=== PATIENT | male | born 1970 | race Caucasian/White ===

== ENCOUNTER 2018-02-22 12:11 | Emergency (ER) | payer SELFPAY ==
[2018-02-22 12:16] VITALS: BP 141/92
[2018-02-22] MEDS ORDERED: DIPH/PERTUSS(ACELL)/TETANUS VAC/PF 0.5 ML SYR (>=10YO) IM ONE (12:37)
[2018-02-22] MEDS ORDERED: OXYCODONE-ACETAMINOPHEN 5-325 MG TABLET PO ONE (12:37)
--- NOTE | 2018-02-22 12:39 | ER Document Report ---
ED Medical Screen (RME) - General Chief Complaint: Fall Stated Complaint: LACERATION ARM AND FACE Time Seen by Provider: 02/22/18 12:37 Mode of Arrival: Ambulatory Information source: Patient Notes: 47-year-old male presents to the emergency room after a fall while trying to navigate a gyrate her. He did hit his head but there was no loss of consciousness. He also fell flat on his back and has a lot of thoracic and lumbar spine tenderness. He has small lacerations to bilateral upper extremities. His last tetanus shot is unknown. This been no nausea, vomiting, abdominal pain. TRAVEL OUTSIDE OF THE [place] IN LAST 30 DAYS: No - Related Data Allergies/Adverse Reactions: ziprasidone [From Geodon] Allergy (Verified 02/22/18 12:15) Past Medical History - Social History Frequency of alcohol use: None Drug Abuse: None - Past Medical History Cardiac Medical History: Reports: Hx Hypercholesterolemia, Hx Hypertension Endocrine Medical History: Reports: Hx Diabetes Mellitus Type 2 - borderline Renal/ Medical History: Denies: Hx Peritoneal Dialysis Psychiatric Medical History: Reports: Hx Bipolar Disorder Physical Exam - Vital signs Vitals: Temp Pulse Resp BP Pulse Ox 98.6 F 98 18 141/92 H 98 02/22/18 12:14 02/22/18 12:14 02/22/18 12:14 02/22/18 12:14 02/22/18 12:14 Course - Vital Signs Vital signs: Temp Pulse Resp BP Pulse Ox 98.6 F 98 18 141/92 H 98 02/22/18 12:14 02/22/18 12:14 02/22/18 12:14 02/22/18 12:14 02/22/18 12:14 Doctor's Discharge - Discharge Referrals: LOCALMD,NO [Primary Care Provider] - Follow up as needed
--- NOTE | 2018-02-22 13:22 | RADIOLOGY REPORT (SQ) ---
EXAM DESCRIPTION: T SPINE AP/LAT COMPLETED DATE/TIME: 02/22/2018 12:59 pm REASON FOR STUDY: tspine pain s/p fall COMPARISON: None. NUMBER OF VIEWS: Two views. TECHNIQUE: AP and lateral radiographic images acquired of the thoracic spine. LIMITATIONS: None. FINDINGS: MINERALIZATION: Normal. ALIGNMENT: There is a very minimal thoracic scoliosis. Thoracic vertebra are otherwise well-aligned. VERTEBRAE: No fracture or bone lesion. Maintained height, normal segmentation. DISCS: No significant loss of height or significant narrowing. No large osteophytes. HARDWARE: None in the spine. MEDIASTINUM AND SOFT TISSUES: Normal heart size and aortic contour. No soft tissue abnormality. VISUALIZED LUNG BARBA: Clear. OTHER: No other significant finding. IMPRESSION: Minimal thoracic scoliosis. No significant vertebral compression or disc space reductio n TECHNICAL DOCUMENTATION: JOB ID: [id number] [employer]- All Rights Reserved Reading location - IP/workstation name: [email or web address]
--- NOTE | 2018-02-22 13:25 | RADIOLOGY REPORT (SQ) ---
EXAM DESCRIPTION: L SPINE WHOLE COMPLETED DATE/TIME: 02/22/2018 12:59 pm REASON FOR STUDY: low back pain s/p fall COMPARISON: None. NUMBER OF VIEWS: Five views including obliques. TECHNIQUE: AP, lateral, oblique, and sacral radiographic images acquired of the lumbar spine. LIMITATIONS: None. FINDINGS: MINERALIZATION: Normal. SEGMENTATION: Normal. No transitional anatomy. ALIGNMENT: Normal. VERTEBRAE: Maintained height. No fracture or worrisome bone lesion. DISCS: Preserved height. No significant osteophytes or end plate irregularity. POSTERIOR ELEMENTS: Pedicles and facets are intact. No pars defect or posterior arch defects. HARDWARE: None in the spine. PARASPINAL SOFT TISSUES: Normal. PELVIS: Intact as visualized. No fractures or worrisome bone lesions. SI joints intact. OTHER: No other significant finding. IMPRESSION: NORMAL 5 VIEW LUMBAR SPINE. TECHNICAL DOCUMENTATION: JOB ID: [id number] [employer]- All Rights Reserved Reading location - IP/workstation name: [email or web address]
[2018-02-22] MEDS ORDERED: LIDOCAINE 4%/TETRACAINE 0.5%/EPI 0.18% 5 ML TOPICAL SOLN TOP ONE (13:42)
[2018-02-22] MEDS ORDERED: LIDOCAINE 1%/EPINEPHRINE INJ 20 ML VIAL INJ ONE (13:42)
--- NOTE | 2018-02-22 13:42 | ER Document Report ---
ED Fall - General Chief Complaint: Fall Stated Complaint: LACERATION ARM AND FACE Time Seen by Provider: 02/22/18 12:37 Mode of Arrival: Ambulatory Information source: Patient Notes: Patient states that he got into a gyrus scope and somebody moved the equipment and he fell backwards out of the device landing on the equipment. Patient complains of lacerations to bilateral forearms and a cut to the right side of his forehead. Patient does complain of back pain as well. Patient denies any loss of consciousness nausea or vomiting. Patient denies any paresthesia or radiculopathy. TRAVEL OUTSIDE OF THE [place] IN LAST 30 DAYS: No - HPI Occurred: Just prior to arrival Where: Outdoors Context: Fell from standing Location of injury/pain: Back, Face, Upper extremity Quality of pain: Sharp Pain Level: 4 - Related data Allergies/Adverse Reactions: ziprasidone [From Geodon] Allergy (Verified 02/22/18 12:15) Past Medical History - General Information source: Patient - Social History Smoking Status: Current Every Day Smoker Frequency of alcohol use: None Drug Abuse: None Lives with: Family Family History: Reviewed & Not Pertinent Patient has suicidal ideation: No Patient has homicidal ideation: No - Past Medical History Cardiac Medical History: Reports: Hx Hypercholesterolemia, Hx Hypertension Endocrine Medical History: Reports: Hx Diabetes Mellitus Type 2 - borderline Renal/ Medical History: Denies: Hx Peritoneal Dialysis Psychiatric Medical History: Reports: Hx Bipolar Disorder Past Surgical History: Reports: Hx Herniorrhaphy Review of Systems - Review of Systems Constitutional: No symptoms reported EENT: No symptoms reported Cardiovascular: No symptoms reported. denies: Chest pain Respiratory: No symptoms reported. denies: Cough, Short of breath Gastrointestinal: No symptoms reported. denies: Nausea, Vomiting Genitourinary: No symptoms reported Male Genitourinary: No symptoms reported Musculoskeletal: Back pain Skin: Other - Lacerations to bilateral arms and face Hematologic/Lymphatic: No symptoms reported Neurological/Psychological: No symptoms reported Physical Exam - Vital signs Vitals: Temp Pulse Resp BP Pulse Ox 98.6 F 98 18 141/92 H 98 02/22/18 12:14 02/22/18 12:14 02/22/18 12:14 02/22/18 12:14 02/22/18 12:14 - General General appearance: Appears well, Alert In distress: None - HEENT Head: Normocephalic, Abrasions - r forehead, Tenderness. No: Johnson's sign, Ecchymosis, [place]'s eyes Eyes: Normal Conjunctiva: Normal Extraocular movements intact: Yes Eyelashes: Normal Pupils: PERRL Nasal: Normal Mouth/Lips: Normal Mucous membranes: Normal Neck: Normal, Supple. No: Lymphadenopathy - Respiratory Respiratory status: No respiratory distress Chest status: Nontender Breath sounds: Normal. No: Rales, Rhonchi, Stridor, Wheezing Chest palpation: Normal - Cardiovascular Rhythm: Regular Heart sounds: S1 appreciated, S2 appreciated Murmur: No - Back Back: Tender - Patient with thoracic midline tenderness and thoracolumbar spinal tenderness with overlying abrasion around the T12-L1 area in the T4-T7 area, Vertebra tenderness. No: Deformity/step-off, CVA tenderness - Extremities General upper extremity: Tender - Patient with lacerations to bilateral forearms , Normal ROM. No: Edema General lower extremity: Normal inspection, Normal ROM Arm: Normal, Nontender Elbow: Normal, Nontender Forearm: Laceration Wrist: Normal, Nontender Hand: Normal, Nontender Hip: Normal, Nontender Ankle: Normal, Nontender - Neurological Neuro grossly intact: Yes Cognition: Normal Trip Coma Scale Eye Opening: Spontaneous Trpi Coma Scale Verbal: Oriented Trip Coma Scale Motor: Obeys Commands Trip Coma Scale Total: 15 - Psychological Associated symptoms: Normal affect, Normal mood - Skin Skin Temperature: Warm Skin Moisture: Dry Skin irregularity: Laceration - Laceration to bilateral forearms Course - Vital Signs Vital signs: Temp Pulse Resp BP Pulse Ox 98.6 F 98 18 141/92 H 98 02/22/18 12:14 02/22/18 12:14 02/22/18 12:14 02/22/18 12:14 02/22/18 12:14 Procedures - Laceration/Wound Repair Left Arm Wound length (cm): 1 Wound's Depth, Shape: Linear Anesthetic type: 1% Lidocaine w/epi Wound explored: Clean, No foreign body removed Wound Repaired With: Sutures Suture Size/Type: 5:0, Nylon Number of Sutures: 1 Layer Closure?: No Post-procedure wound care: Sterile dressing applied Post-procedure NV exam normal: Yes Complications: No Adult Front & Back picture: 1 - lac Right Arm Wound length (cm): 2 Wound's Depth, Shape: Linear Anesthetic type: 1% Lidocaine w/epi Wound explored: Clean, No foreign body removed Wound Repaired With: Sutures Suture Size/Type: 5:0, Nylon Number of Sutures: 3 Post-procedure wound care: Sterile dressing applied Post-procedure NV exam normal: Yes Complications: No Adult Front & Back picture: 1 - lac Right Face Wound length (cm): 1.3 Wound's Depth, Shape: Irregular, Flap Laceration pre-procedure: Other - surgical scrub Anesthetic type: Other - let Wound explored: Clean Wound Debrided: Minimal Wound Repaired With: Dermabond Layer Closure?: No Post-procedure NV exam normal: Yes Complications: No Adult Head Front/Back picture: 1 - lac Discharge - Discharge Clinical Impression: Multiple lacerations Fall Qualifiers: Encounter type: initial encounter Qualified Code(s): W19.XXXA - Unspecified fall, initial encounter Abrasion of back Qualifiers: Encounter type: initial encounter Laterality: unspecified laterality Qualified Code(s): S20.419A - Abrasion of unspecified back wall of thorax, initial encounter Back pain Qualifiers: Back pain location: back pain in unspecified location Chronicity: acute Back pain laterality: midline Qualified Code(s): M54.9 - Dorsalgia, unspecified Condition: Good Disposition: HOME, SELF-CARE Instructions: Abrasions ([facility]), Abrasions of the Face ([facility]), Laceration Care ( [facility]), Low Back Pain ([facility]), Soap Cleansing ([facility]), Tetanus Immunization Given ([facility] ), Upper Back Strain ([facility]) Additional Instructions: Return immediately for any new or worsening symptoms Followup with your primary care provider, call tomorrow to make a followup appointment Suture removal in 10 days Take your pain medication that you have at home as prescribed Prescriptions: Methocarbamol [Robaxin 500 Mg Tablet] 500 mg PO QID PRN #20 tablet PRN Reason: Oxycodone HCl [Oxy-Ir 5 mg Tablet] 5 mg PO Q6 PRN #4 tablet PRN Reason: Referrals: INESSA SINGER MD [NO LOCAL MD] - Follow up tomorrow
[2018-02-22] MEDS ORDERED: METHOCARBAMOL 500 MG TABLET PO ONE (14:07)
== END 2018-02-22 16:31 | disposition home or self-care (01) ==
LOC: ER 12:11
PROC: 0HQEXZZ Repair Left Lower Arm Skin, External Approach (ICD-10-PCS; principal; 2018-02-22)
PROC: 0HQDXZZ Repair Right Lower Arm Skin, External Approach (ICD-10-PCS; 2018-02-22)
PROC: 0HQ1XZZ Repair Face Skin, External Approach (ICD-10-PCS; 2018-02-22)
DX: S51.812A Laceration without foreign body of left forearm, initial encounter (principal); S51.811A Laceration without foreign body of right forearm, initial encounter; S01.81XA Laceration without foreign body of other part of head, initial encounter; M54.9 Dorsalgia, unspecified; W19.XXXA Unspecified fall, initial encounter; F17.200 Nicotine dependence, unspecified, uncomplicated; E78.00 Pure hypercholesterolemia, unspecified; I10 Essential (primary) hypertension; E11.9 Type 2 diabetes mellitus without complications; Z23 Encounter for immunization
CPT/HCPCS: 99283; 90471; 72110; 72070; 90715; 12002; 12011; J3490 ×2